=== PATIENT | female | born 1970 | race Hispanic/Latino ===

== ENCOUNTER 2016-06-02 15:34 | Outpatient (CLI) | payer OTHER ==
--- NOTE | 2016-06-02 16:10 | Mammography Report ---
BILATERAL MAMMOGRAM: FINDINGS: There are scattered fibroglandular densities (approximately 25%-50% glandular). No mass, distortion, suspicious calcification, or skin change is seen. There is no significant change when compared to the prior study of April 2015. CAD was utilized. IMPRESSION: Negative mammogram. There is no mammographic evidence of malignancy. RECOMMENDATION: Follow-up per ACS guidelines. BI-RADS CATEGORY: 1 = Negative ACR BI-RADS MAMMOGRAPHIC CODES: 0 = Needs additional imaging evaluation; 1 = Negative; 2 = Benign; 3 = Probably benign; 4 = Suspicious; 5 = Malignant; 6 = Known biopsy-proven malignancy COMMENT: 1. Dense breast tissue, i.e., adenosis, fibrocystic changes, etc., may obscure an underlying neoplasm. 2. Approximately 10% of cancers are not detected with mammography. 3. A negative mammography report should not delay biopsy if a clinically suspicious mass is present. COMMENT: Patient follow-up letters are generated in [employer].
== END 2016-06-02 15:35 | disposition home or self-care (01) ==
LOC: SPVWC 15:34
PROVIDERS: ATTEND Obstetrics & Gynecology
DX: Z12.31 Encounter for screening mammogram for malignant neoplasm of breast (principal)
CPT/HCPCS: 77067; G0202

== ENCOUNTER 2017-08-20 15:43 | Outpatient (CLI) | payer OTHER ==
--- NOTE | 2017-08-22 08:45 | Mammography Report ---
BILATERAL DIGITAL SCREENING MAMMOGRAM with CAD: 08/20/17 15:43:00 CLINICAL: Routine screening. COMPARISON:06/02/16 and annual mammograms going back to 2010. FINDINGS: There are scattered areas of fibroglandular density.A left lower inner parenchymal asymmetry is unchanged compared to previous exams. It has been present on some but not all previous exams. No mass, architectural distortion or suspicious calcifications. IMPRESSION: No mammographic evidence of malignancy. BI-RADS CATEGORY: 2 -- Benign RECOMMENDATION: Routine mammographic screening in one year. COMMENT: Patient follow-up letters are generated by our [employer] application.
== END 2017-08-20 15:44 | disposition home or self-care (01) ==
LOC: SPVWC 15:43
PROVIDERS: ATTEND Obstetrics & Gynecology
DX: Z12.31 Encounter for screening mammogram for malignant neoplasm of breast (principal)
CPT/HCPCS: 77067

== ENCOUNTER 2018-09-13 15:30 | Outpatient (CLI) | payer OTHER ==
--- NOTE | 2018-09-13 16:10 | Mammography Report ---
BILATERAL DIGITAL SCREENING MAMMOGRAM with CAD: 09/13/18 15:30:00 CLINICAL: Routine screening. COMPARISON:08/20/17 and 06/02/16 FINDINGS: There are scattered areas of fibroglandular density. No mass, architectural distortion or suspicious calcifications. IMPRESSION: No mammographic evidence of malignancy. BI-RADS CATEGORY: 2 -- Benign RECOMMENDATION: Routine mammographic screening in one year. COMMENT: Patient follow-up letters are generated by our [employer] application.
== END 2018-09-13 15:31 | disposition home or self-care (01) ==
LOC: SPVWC 15:30
PROVIDERS: ATTEND Obstetrics & Gynecology
DX: Z12.31 Encounter for screening mammogram for malignant neoplasm of breast (principal)
CPT/HCPCS: 77067

== ENCOUNTER 2019-09-16 15:58 | Outpatient (CLI) | payer OTHER ==
--- NOTE | 2019-09-17 07:56 | Mammography Report ---
DIGITAL SCREENING MAMMOGRAM WITH CAD, 09/16/2019 INDICATION: Routine screening mammography. TECHNIQUE: Digital bilateral 2D mammography was obtained in the craniocaudal and mediolateral obliq ue projections. This examination was interpreted with the benefit of Computer-Aided Detection analysi s. COMPARISON: 08/20/2017, 09/13/2018 FINDINGS: Breast Density: There are scattered areas of fibroglandular density. There is no evidence of dominant mass, suspicious calcifications or architectural distortion in eithe r breast. No interval change. IMPRESSION: No evidence of malignancy. Follow up recommendation: Routine yearly BI-RADS Category 1: Negative. A "normal" or negative report should not discourage follow up or biopsy of a clinically significant f inding. A written summary of these findings will be mailed to the patient. The patient will be entered into a mammography reporting system which will generate a reminder letter for the patient's next appointmen t at the appropriate interval. The [employer] recommends yearly mammograms starting at age 40 and continuing as l theodore as a woman is in good health. Breast MRI is recommended for women with an approximate 20-25% or greater lifetime risk of breast cancer, including women with a strong family history of breast or ova reymundo cancer or who have been treated for Hodgkin's disease. Signer Name: Colette Tang MD Signed: 09/17/2019 7:51 AM Workstation Name: [id number]
== END 2019-09-16 15:59 | disposition home or self-care (01) ==
LOC: SPVWC 15:58
PROVIDERS: ATTEND Obstetrics & Gynecology
DX: Z12.31 Encounter for screening mammogram for malignant neoplasm of breast (principal); N64.89 Other specified disorders of breast
CPT/HCPCS: 77067

== ENCOUNTER 2020-10-27 15:49 | Outpatient (CLI) | payer OTHER ==
--- NOTE | 2020-10-28 12:38 | Ultrasound Report ---
ULTRASOUND BREAST RIGHT LIMITED, 10/28/2020 CLINICAL INFORMATION / INDICATION: Abnormal recent right mammogram. TECHNIQUE: Targeted ultrasound evaluation was performed of the area of interest. COMPARISON: Outside mammogram, 10/06/2020 FINDINGS: In the 1:00 location of the right breast, 5 cm from nipple, there is a hypoechoic mass , measuring 7 x 6 mm. It is unclear if this is a complicated cyst or solid mass. There is no through transmission a nd the roche are somewhat irregular therefore further evaluation is recommended. This does appear to correlate with mass seen on recent outside mammogram. IMPRESSION: 7 mm hypoechoic mass is present in the right breast at 1:00, corresponding to abnormality seen on outside screening mammogram. Recommend ultrasound-guided biopsy for further evaluation. Follow up recommendation: Biopsy BI-RADS Category 4: Suspicious for Malignancy. A normal or "negative" report should not preclude biopsy or follow-up of a clinically suspicious find ing. Signer Name: Colette Tang MD Signed: 10/28/2020 12:33 PM Workstation Name: [id number]
== END 2020-10-27 15:50 | disposition home or self-care (01) ==
LOC: SPVWC 15:49
PROVIDERS: ATTEND Obstetrics & Gynecology
DX: N63.12 Unspecified lump in the right breast, upper inner quadrant (principal)

== ENCOUNTER 2020-11-16 15:09 | Outpatient (CLI) | payer OTHER ==
--- NOTE | 2020-11-16 16:16 | Ultrasound Report ---
ULTRASOUND GUIDED RIGHT BREAST BIOPSY, 11/16/2020 CLINICAL INFORMATION / INDICATION: R92.8 ABNORMAL MAMMO/ N63.10. Patient presents for right breast ul trasound-guided biopsy. COMPARISON: Prior mammogram 10/06/2020 and right breast ultrasound 10/27/2020 PROCEDURE: Risks, benefits, and indications to the procedure were discussed with the patient in detail, includin g bleeding, infection, hematoma formation, and inadequate tissue sampling. The patient agreed to proc eed with both verbal and written consent. A timeout procedure was performed with two patient identifi ers. The breast was prepped and draped in the usual sterile fashion. Lidocaine 1% with and without epineph rine were used for local anesthesia. Under direct ultrasound guidance, multiple core samples were obt ained of the lesion in the right breast 1:00 position located 5 cm from the nipple. The lesion essent ially resolved following the biopsy, most compatible with a cyst. A biopsy marker was then placed. Bi opsy device was removed and hemostasis achieved with manual pressure. A sterile dressing was applied to the skin. The patient tolerated the procedure without difficulty. No complications were encountered. Postbiopsy instructions were discussed with the patient and given in writing. Specimens were sent to pathology. IMPRESSION: 1. Technically successful ultrasound guided right breast biopsy. The lesion essentially resolved duri ng the course of the biopsy, suggesting that this represents a benign cyst, though specimens were sub mitted for pathologic analysis. Biopsy results are pending and will be reported in an addendum. Signer Name: Kait Jackson MD Signed: 11/16/2020 4:11 PM Workstation Name: [id number]
--- NOTE | 2020-11-16 16:19 | Mammography Report ---
DIGITAL DIAGNOSTIC MAMMOGRAM WITH CAD CONVENTIONAL, 11/16/2020 CLINICAL INFORMATION / INDICATION: Postbiopsy mammogram following right breast ultrasound-guided bio psy. TECHNIQUE: Digital right mammographic imaging was performed. This examination was interpreted with the benefit of Computer-aided Detection analysis. COMPARISON: Prior mammogram 10/06/2020 FINDINGS: Breast Density: There are scattered areas of fibroglandular density. Postbiopsy mammogram reveals a biopsy clip appropriately positioned at site of previously described n odular density in the upper inner quadrant of the right breast, middle depth. The lesion is not visua lized and obscured by postbiopsy change on the mammogram, though sonographically at the time of biops y, the lesion appeared to resolve. IMPRESSION: 1. Appropriately positioned biopsy clip following right breast ultrasound-guided biopsy. Follow up recommendation: No recall. Post biopsy imaging. A "normal" or negative report should not discourage follow up or biopsy of a clinically significant f inding. A written summary of these findings will be mailed to the patient. The patient will be entered into a mammography reporting system which will generate a reminder letter for the patient's next appointmen t at the appropriate interval. According to the [employer], yearly mammograms are recommended starting at age 40 and continuing as long as a woman is in good health. Breast MRI is recommended for women with an enrrique roximately 20-25% or greater lifetime risk of breast cancer, including women with a strong family his tory of breast or ovarian cancer and women who have been treated for Hodgkin's disease. Signer Name: Kait Jackson MD Signed: 11/16/2020 4:14 PM Workstation Name: [id number]
== END 2020-11-16 15:10 | disposition home or self-care (01) ==
LOC: SPVWC 15:09
PROVIDERS: ATTEND Obstetrics & Gynecology
DX: R92.8 Other abnormal and inconclusive findings on diagnostic imaging of breast (principal); N63.10 Unspecified lump in the right breast, unspecified quadrant; Z79.899 Other long term (current) drug therapy
CPT/HCPCS: 88305

== ENCOUNTER 2021-11-22 15:14 | Outpatient (CLI) | payer OTHER ==
--- NOTE | 2021-11-23 12:11 | Mammography Report ---
DIGITAL SCREENING MAMMOGRAM WITH CAD, 11/22/2021 CLINICAL INFORMATION / INDICATION: Routine screening mammography. TECHNIQUE: Digital bilateral 2D mammography was obtained in the craniocaudal and mediolateral oblique projections. This examination was interpreted with the benefit of Computer-Aided Detection analysis. COMPARISON: 09/16/2019 and 11/16/2020 FINDINGS: Breast Density: There are scattered areas of fibroglandular density. Focal asymmetry within the lateral right breast, located 5 cm from the nipple. This is most conspicuo us on the CC projection, but there is a possible MLO correlate at the 3:00 position. No dominant mass, suspicious calcifications, or architectural distortion in the left breast. Postbiopsy clip within the upper inner quadrant of the right breast. IMPRESSION: Focal asymmetry within the lateral right breast, located 5 cm from the nipple. Follow up recommendation: Special View: Spot Compression and possible right breast ultrasound. BI-RADS Category 0: INCOMPLETE. Needs additional imaging evaluation and/or prior mammograms for james tranon. A "normal" or negative report should not discourage follow up or biopsy of a clinically significant f inding. A written summary of these findings will be mailed to the patient. The patient will be entered into a mammography reporting system which will generate a reminder letter for the patient's next appointmen t at the appropriate interval. The [employer] recommends yearly mammograms starting at age 40 and continuing as l theodore as a woman is in good health. Breast MRI is recommended for women with an approximate 20-25% or greater lifetime risk of breast cancer, including women with a strong family history of breast or ova reymundo cancer or who have been treated for Hodgkin's disease. Signer Name: Rick Ching MD Signed: 11/23/2021 12:07 PM Workstation Name: [id number]
== END 2021-11-22 15:15 | disposition home or self-care (01) ==
LOC: SPVWC 15:14
PROVIDERS: ATTEND Obstetrics & Gynecology
DX: Z12.31 Encounter for screening mammogram for malignant neoplasm of breast (principal)
CPT/HCPCS: 77067